=== PATIENT | female | born 1945 | race Caucasian/White ===

== ENCOUNTER 2017-09-29 13:55 | Outpatient (CLI) | payer MEDICARE, OTHER ==
[~2017-09-29 13:55] MED LIST: ACET-2615 PO; AMLO1TAB12 PO; BIMA2.5D OP; CALC300T4 PO; CHOL100046 PO; COL100C PO; DORZ10DR18 LEFTEYE; MULT-955 PO; OCUVITE PO; PANT-47 PO; PER10325T PO; ST.300TA3 PO; ZOLP5TAB8 PO
== END 2017-09-29 23:59 | disposition home or self-care (01) ==
LOC: RAD 13:55
PROVIDERS: ATTEND Thoracic Surgery (Cardiothoracic Vascular Surgery)
DX: Q79.1 Other congenital malformations of diaphragm (principal); I77.810 Thoracic aortic ectasia; I10 Essential (primary) hypertension; Z90.2 Acquired absence of lung [part of]; Z85.3 Personal history of malignant neoplasm of breast
CPT/HCPCS: 71020

== ENCOUNTER 2019-06-20 10:57 | Outpatient (CLI) | payer MEDICARE, OTHER | END 2019-06-20 23:59 | disposition home or self-care (01) | LOC: VAS 10:57 | PROVIDERS: ATTEND Orthopaedic Surgery | DX: M79.604 Pain in right leg (principal); I10 Essential (primary) hypertension; Z87.891 Personal history of nicotine dependence | CPT/HCPCS: 93970 ==

== ENCOUNTER 2019-08-27 05:05 | Inpatient (IN) | payer MEDICARE, OTHER ==
[2019-08-15 12:28] LABS: BASOPHILS % (AUTO) 0.5 % (0-1); EOSINOPHILS # (AUTO) 0.1 X10'3 (0-0.9); EOSINOPHILS % (AUTO) 1.6 % (0-6); LYMPHOCYTES # (AUTO) 1.3 X10'3 (1.1-4.8); LYMPHOCYTES % (AUTO) 27.4 % (21-51); MEAN CORPUSCULAR HEMOGLOBIN 30.9 PG (27.0-31.0); MEAN CORPUSCULAR HGB CONC 34.5 g/dL (33.0-36.5); MEAN CORPUSCULAR VOLUME 89.6 FL (78-98); MEAN PLATELET VOLUME 7.8 FL (7.4-10.4); MONOCYTES # (AUTO) 0.5 X10'3 (0-0.9); MONOCYTES % (AUTO) 9.3 % (2-12); NEUTROPHILS % (AUTO) 61.2 % (42-75); PRE OP HEMATOCRIT 38.4 % (35.0-45.0); PRE OP HEMOGLOBIN 13.2 g/dL (12.0-16.0); PRE OP PLATELET COUNT 180 X10'3 (140-440); RED BLOOD COUNT 4.28 X10'6 (4.20-5.60); RED CELL DISTRIBUTION WIDTH 13.3 % (11.5-14.5)
[2019-08-15 12:38] LABS: PRE OP PROTIME 10.9 SECONDS (9.0-12.0)
[2019-08-15 12:39] LABS: ALBUMIN 3.8 G/DL (3.4-5.0); ALBUMIN/GLOBULIN RATIO 1.1 (1.1-1.5); ALKALINE PHOSPHATASE 84 IU/L (46-116); BLOOD UREA NITROGEN 18 MG/DL (7-18); BUN/CREATININE RATIO 26.1 (6.6-38.0); CALCIUM 9.1 MG/DL (8.5-10.1); CHLORIDE 104 MMOL/L (99-107); CREATININE 0.69 MG/DL (0.40-0.90); PRE OP ALT 24 U/L (30-65); PRE OP ANION GAP 9 (8-16); PRE OP AST 12 U/L (10-37); PRE OP BILIRUB, TOTAL 0.4 MG/DL (0.0-1.0); PRE OP GLUCOSE 113 MG/DL (70-104); PRE OP POTASSIUM 3.7 MMOL/L (3.4-5.1); PRE OP SODIUM 141 MMOL/L (135-145); TOTAL CARBON DIOXIDE 27.8 MMOL/L (24-32); TOTAL PROTEIN 7.3 G/DL (6.4-8.2); eGFR 84 ML/MIN
[2019-08-27] VITALS (18 sets, daily range): BP systolic 97–153; BP diastolic 52–74
[~2019-08-27] VITALS: Ht 160 cm; Wt 77.7 kg
[~2019-08-27 05:05] MED LIST changes: +ANAS1TAB PO; +APIX5TAB3 PO; -CALC300T4 PO; +CALCIUM PO; -COL100C PO; +MELA3TAB64 PO; -OCUVITE PO; -PANT-47 PO; -PER10325T PO; +TRAM50TA2 PO; +ringers solution, lacted 1,000 ML IV SCH
[2019-08-27] MEDS ORDERED: famotidine 20mg tablet PO ONE (05:30)
[2019-08-27] MEDS ORDERED: tranexamic acid inj. 1,000 MG in normal saline 100 ML IV ONE (05:30)
[2019-08-27] MEDS ORDERED: cefazolin/dext.iso 2gm/50ml 50 ML IV ONE (05:30)
[2019-08-27] MEDS ORDERED: vancomycin inj 1,500 MG in normal saline 300ml IV soln IV ONE (05:30)
[2019-08-27] MEDS ORDERED: ceFAZolin 1000mg inj ONE (06:37)
[2019-08-27 06:57] LABS: PARTIAL THROMBOPLASTIN TIME 35 SECONDS (22-32)
[2019-08-27] MEDS ORDERED: MIDAZolam 1mg/ml 10ml vial ONE (07:07)
[2019-08-27] MEDS ORDERED: morphine /PF 1mg/ml 10ml inj. ONE (07:07)
[2019-08-27] MEDS ORDERED: fentaNYL/PF 50MCG/1 ML 2ML syringe ONE (07:08)
[2019-08-27] MEDS ORDERED: tetracaine 1% (10mg/ml) pres. free inj. ONE (07:09)
[2019-08-27] MEDS ORDERED: LIDOcaine 2% (20mg/ml) 5ml vial ONE (07:35)
[2019-08-27] MEDS ORDERED: propofol inj 20 ML IV ONE (07:35)
[2019-08-27] MEDS ORDERED: diphenhydrAMINE 50 mg/ml inj ONE (07:51)
[2019-08-27] MEDS ORDERED: ringers solution, lacted 1,000 ML IV SCH (07:59)
[2019-08-27] MEDS ORDERED: hydrALAZINE 20mg/ml inj. IV PRN (08:00)
[2019-08-27] MEDS ORDERED: fentaNYL/PF 50MCG/1 ML 2ML syringe IV PRN ×2 (08:00)
[2019-08-27] MEDS ORDERED: morphine 4 MG/ML inj SYRINge IV PRN ×2 (08:00)
[2019-08-27] MEDS ORDERED: ondansetron/PF 4mg/2ml inj IV PRN ×3 (08:00→10:00)
[2019-08-27] MEDS ORDERED: labetalol 20mg/4ml (5mg/ml) syringe IV PRN (08:00)
[2019-08-27] MEDS ORDERED: diphenhydrAMINE 50 mg/ml inj IV PRN (08:05)
[2019-08-27] MEDS ORDERED: dexamethasone sod phosphate 4mg/ml inj. ONE (08:08)
[2019-08-27] MEDS ORDERED: ROPIVAcaine 0.5% (5mg/ml) 30ml vial ONE (08:08)
[2019-08-27] MEDS ORDERED: zolpidem 5mg tablet PO PRN (09:55)
--- NOTE | 2019-08-27 09:58 | NUR ---
Received from OR via SURGICAL BED, accompanied by Anesthesiologist Josephine and report given by Anesthesiolgist. Pt alert and oreitned VS stable, warming blanket on, moves all extremeties, all 4 distal pulses palpable. NC at 22L, sats 96%. right knee with tj dressing ON-Q line ready for medicine to be connected, cool pack in place. 18G left forearm running IVF LR 100cc/hr. Vargas cath in place draining yellow urine, SCDs on.
[2019-08-27] MEDS ORDERED: HYDROmorphone inj. 0.5 MG/0.5 ML DISP.SYRIN IV PRN (10:00)
[2019-08-27] MEDS ORDERED: acetaminophen 325mg tablet PO PRN (10:00)
[2019-08-27] MEDS ORDERED: diphenhydrAMINE 25mg capsule PO PRN (10:00)
[2019-08-27] MEDS ORDERED: magnesium hydroxide 30ml (MOM) UD suspension PO PRN (10:00)
[2019-08-27] MEDS ORDERED: bisacodyl 10mg suppository rectal RC PRN (10:00)
--- NOTE | 2019-08-27 10:18 | NUR ---
Report called to receiving nurse. Transferred via ortho bed. Belongings at bedside. Special Issues communicated to receiving nurse. Reviewed pt status with nurse at bedside. VS remain stable, family at bedside, BLL, call light within reach. Chart at bedside. Relayed information from Dr Madrigal that he does still want elequis to be given tonight as ordered despite her being fresh post op. Receiving nurse Jemima POWELL verbalized understanding of orders all questions answered.
[2019-08-27] MEDS: ROPIVAcaine 0.2%/PF PUMP/bolus 550 ML ADDCANAL SCH (10:45)
--- NOTE | 2019-08-27 11:15 | NUR ---
Pt returned from surgery with On-Q pump at 6ml/hr. Pt reported pain to be a "6" left knee. On-Q pump turned up to 8ml/hr at this time. Pt continued to complain of "more pain," and at 1200, ON-Q pump increased to 10ml/hr. Pt continues to rate pain at a "6" throbbing left knee, but states "I need to have less pain." Pt recovered well and was stable. Left knee pain rated at a "7" at 1600 and ON-Q pump was turned up to 12/hr. Recheck of pts pain at 1700 pt reported she was finally feeling better. Pt appears to have some difficulty relating to pain scale, but informs RN that she would like pain pump increased at the times listed above. Will continue to monitor.
[2019-08-27] MEDS: potassium Cl 20mEq in NS 1,000 ML IV SCH ×2 (14:38→23:18)
[2019-08-27] MEDS: ceFAZolin 1GM/D5W- ADD-VANTAGE 50 ML IV SCH ×2 (16:04→23:35)
--- NOTE | 2019-08-27 18:32 | NUR ---
Problems reprioritized. Patient report given, questions answered & plan of care reviewed with ANDRE Del Toro.
[2019-08-27] MEDS ORDERED: vancomycin/NS 1 GM ADD-VANTAGE 250 ML IV SCH (20:00)
[2019-08-27] MEDS: Melatonin 3mg tablet PO SCH (20:31)
[2019-08-27] MEDS: apixaban 5mg tablet PO SCH (20:31)
[2019-08-27] MEDS: sennosides 8.6mg tablet PO SCH (20:33)
[2019-08-27] MEDS: latanoprost 0.005% 2.5ml ophthalmic drops LEFTEYE SCH (20:33)
[2019-08-27] MEDS: HYDROcodone/acetaminophen 10/325mg tab PO PRN (21:15)
[2019-08-28] VITALS (8 sets, daily range): BP systolic 77–147; BP diastolic 40–77
[2019-08-28] MEDS: HYDROcodone/acetaminophen 10/325mg tab PO PRN ×4 (03:36→22:27)
[2019-08-28] MEDS: potassium Cl 20mEq in NS 1,000 ML IV SCH (05:21)
[2019-08-28 06:10] LABS: BASOPHILS % (AUTO) 0.1 % (0-1); EOSINOPHILS % (AUTO) 0.7 % (0-6); HEMATOCRIT 26.6 % (35.0-45.0); HEMOGLOBIN 9.3 g/dl (12.0-16.0); LYMPHOCYTES # (AUTO) 0.9 X10'3 (1.1-4.8); LYMPHOCYTES % (AUTO) 14.4 % (21-51); MEAN CORPUSCULAR HEMOGLOBIN 31.3 PG (27.0-31.0); MEAN CORPUSCULAR HGB CONC 35.1 g/dL (33.0-36.5); MEAN CORPUSCULAR VOLUME 89.3 FL (78-98); MEAN PLATELET VOLUME 8.4 FL (7.4-10.4); MONOCYTES # (AUTO) 0.8 X10'3 (0-0.9); NEUTROPHILS # (AUTO) 4.8 X10'3 (1.8-7.7); NEUTROPHILS % (AUTO) 72.8 % (42-75); PLATELET COUNT 121 X10'3 (140-440); RED BLOOD COUNT 2.97 X10'6 (4.20-5.60); RED CELL DISTRIBUTION WIDTH 13.5 % (11.5-14.5); WHITE BLOOD COUNT 6.6 X10'3 (4.5-11.0)
[2019-08-28 06:11] LABS: ALANINE AMINOTRANSFERASE 44 U/L (12-78); ALBUMIN 2.7 G/DL (3.4-5.0); ALBUMIN/GLOBULIN RATIO 1.1 (1.1-1.5); ALKALINE PHOSPHATASE 71 IU/L (46-116); ANION GAP 9 (8-16); ASPARTATE AMINO TRANSFERASE 28 U/L (10-37); BILIRUBIN,TOTAL 0.4 MG/DL (0.1-1.0); BLOOD UREA NITROGEN 13 MG/DL (7-18); BUN/CREATININE RATIO 20.3 (6.6-38.0); CALCIUM 7.8 MG/DL (8.5-10.1); CHLORIDE 107 MMOL/L (99-107); CREATININE 0.64 MG/DL (0.40-0.90); GLUCOSE 115 MG/DL (70-104); POTASSIUM 3.9 MMOL/L (3.5-5.1); SODIUM 140 MMOL/L (135-145); TOTAL CARBON DIOXIDE 23.9 MMOL/L (24-32); TOTAL PROTEIN 5.2 G/DL (6.4-8.2); eGFR > 90 ML/MIN
--- NOTE | 2019-08-28 06:26 | NUR ---
REPORT GIVEN TO ANDRE WESTON.
--- NOTE | 2019-08-28 07:30 | NUR ---
Prior to PT, dilaudid was given. PT to work with this afternoon. Addendum: 08/28/19 at 1304 by Tiffany Ferro RN Amended: Links added.
[2019-08-28] MEDS: anastrozole 1 MG tablet PO SCH (09:07)
[2019-08-28] MEDS: apixaban 5mg tablet PO SCH ×2 (09:07→20:33)
[2019-08-28] MEDS: losartan 50mg tablet PO SCH (09:07)
[2019-08-28] MEDS: dorzolamide/timolol (Cosopt) ophthalmic drops 10ml bottle LEFTEYE SCH (09:07)
[2019-08-28] MEDS: amLODIPine 5mg tablet PO SCH (09:07)
--- NOTE | 2019-08-28 11:39 | NUR ---
Student Medication Administration:For this medication-pass time frame [id number], all medications were reviewed,administered and documented per hospital policy by Shania Mcclain. Student documentation:I have reviewed and agree with all interventions, assessments performed and documented by Shania Mcclain.
--- NOTE | 2019-08-28 11:49 | NUR ---
Joint replacement consult: Pt seen by PRAKASH for written/verbal high protein ed w/ RD contact information provided. Pt agrees to strawberry ensure enlive TIDWM since drinks premier proteins at home. Pt aware that pending MD verification prior to sending on trays. Some new onset nausea today per pt now improving. Will continue to monitor. Addendum: 08/28/19 at [address] Amended: Links added.
--- NOTE | 2019-08-28 18:18 | NUR ---
Problems reprioritized. Patient report given, questions answered & plan of care reviewed with Katey POWELL.
[2019-08-28] MEDS: latanoprost 0.005% 2.5ml ophthalmic drops LEFTEYE SCH (20:33)
[2019-08-28] MEDS: Melatonin 3mg tablet PO SCH (20:33)
[2019-08-28] MEDS: sennosides 8.6mg tablet PO SCH (20:33)
[2019-08-28] MEDS: diphenhydrAMINE 25mg capsule PO PRN (22:27)
[2019-08-29] MEDS: potassium Cl 20mEq in NS 1,000 ML IV SCH (01:58)
[2019-08-29] MEDS: HYDROcodone/acetaminophen 10/325mg tab PO PRN ×5 (02:19→20:25)
[2019-08-29 06:00] VITALS: BP 149/77
[2019-08-29 06:21] LABS: BASOPHILS % (AUTO) 0.2 % (0-1); EOSINOPHILS % (AUTO) 0.3 % (0-6); HEMATOCRIT 26.1 % (35.0-45.0); HEMOGLOBIN 9.2 g/dl (12.0-16.0); LYMPHOCYTES # (AUTO) 0.8 X10'3 (1.1-4.8); LYMPHOCYTES % (AUTO) 9.4 % (21-51); MEAN CORPUSCULAR HEMOGLOBIN 31.6 PG (27.0-31.0); MEAN CORPUSCULAR HGB CONC 35.4 g/dL (33.0-36.5); MEAN CORPUSCULAR VOLUME 89.2 FL (78-98); MEAN PLATELET VOLUME 8.2 FL (7.4-10.4); MONOCYTES # (AUTO) 0.9 X10'3 (0-0.9); MONOCYTES % (AUTO) 10.2 % (2-12); NEUTROPHILS % (AUTO) 79.9 % (42-75); PLATELET COUNT 128 X10'3 (140-440); RED BLOOD COUNT 2.93 X10'6 (4.20-5.60); RED CELL DISTRIBUTION WIDTH 13.3 % (11.5-14.5); WHITE BLOOD COUNT 8.7 X10'3 (4.5-11.0)
--- NOTE | 2019-08-29 06:23 | NUR ---
REPORT GIVEN TO ANDRE KAT.
--- NOTE | 2019-08-29 06:25 | NUR ---
Patient in room ORTH[facility] 4024. I have received report from Katey and had the opportunity to ask questions and assume patient care.
--- NOTE | 2019-08-29 06:31 | NUR ---
Patient in room ORTH[facility] 4024. I have received report from Katey and had the opportunity to ask questions and assume patient care.
[2019-08-29 06:37] LABS: ALANINE AMINOTRANSFERASE 32 U/L (12-78); ALBUMIN 2.6 G/DL (3.4-5.0); ALBUMIN/GLOBULIN RATIO 0.8 (1.1-1.5); ALKALINE PHOSPHATASE 66 IU/L (46-116); ANION GAP 10 (8-16); ASPARTATE AMINO TRANSFERASE 19 U/L (10-37); BILIRUBIN,TOTAL 0.4 MG/DL (0.1-1.0); BLOOD UREA NITROGEN 9 MG/DL (7-18); BUN/CREATININE RATIO 15.3 (6.6-38.0); CALCIUM 8.1 MG/DL (8.5-10.1); CHLORIDE 103 MMOL/L (99-107); CREATININE 0.59 MG/DL (0.40-0.90); GLUCOSE 119 MG/DL (70-104); POTASSIUM 3.6 MMOL/L (3.5-5.1); SODIUM 136 MMOL/L (135-145); TOTAL CARBON DIOXIDE 23.1 MMOL/L (24-32); TOTAL PROTEIN 5.8 G/DL (6.4-8.2); eGFR > 90 ML/MIN
[2019-08-29] MEDS: dorzolamide/timolol (Cosopt) ophthalmic drops 10ml bottle LEFTEYE SCH (08:39)
[2019-08-29] MEDS: anastrozole 1 MG tablet PO SCH (08:39)
[2019-08-29] MEDS: losartan 50mg tablet PO SCH (08:40)
[2019-08-29] MEDS: amLODIPine 5mg tablet PO SCH (08:40)
[2019-08-29] MEDS: apixaban 5mg tablet PO SCH ×2 (08:41→20:24)
[2019-08-29] MEDS: ROPIVAcaine 0.2%/PF PUMP/bolus 550 ML ADDCANAL SCH (08:55)
[2019-08-29 10:00] VITALS: BP 139/67
[2019-08-29 14:00] VITALS: BP 130/64
[2019-08-29 18:00] VITALS: BP 121/64
--- NOTE | 2019-08-29 18:08 | NUR ---
Problems reprioritized. Patient report given, questions answered & plan of care reviewed with Katey.
[2019-08-29] MEDS: lactose-reduced food (Ensure High Protein) 237ml bottle PO SCH (18:10)
--- NOTE | 2019-08-29 19:08 | NUR ---
REPORT REC'D FROM ANDRE KAT.
[2019-08-29] MEDS: Melatonin 3mg tablet PO SCH (20:24)
[2019-08-29] MEDS: diphenhydrAMINE 25mg capsule PO PRN (20:24)
[2019-08-29] MEDS: sennosides 8.6mg tablet PO SCH (20:24)
[2019-08-29] MEDS: latanoprost 0.005% 2.5ml ophthalmic drops LEFTEYE SCH (20:25)
[2019-08-29 22:00] VITALS: BP 152/68
[2019-08-30] MEDS: HYDROcodone/acetaminophen 10/325mg tab PO PRN ×4 (00:25→12:25)
[2019-08-30 06:00] VITALS: BP 140/69
--- NOTE | 2019-08-30 06:11 | NUR ---
REPORT GIVEN TO ANDRE KAT.
--- NOTE | 2019-08-30 06:20 | NUR ---
Patient in room ORTH[facility] 4024. I have received report from Katey and had the opportunity to ask questions and assume patient care.
[2019-08-30 06:36] LABS: BASOPHILS % (AUTO) 0.2 % (0-1); EOSINOPHILS % (AUTO) 0.5 % (0-6); HEMATOCRIT 24.9 % (35.0-45.0); HEMOGLOBIN 8.8 g/dl (12.0-16.0); LYMPHOCYTES # (AUTO) 0.8 X10'3 (1.1-4.8); LYMPHOCYTES % (AUTO) 9.2 % (21-51); MEAN CORPUSCULAR HEMOGLOBIN 31.4 PG (27.0-31.0); MEAN CORPUSCULAR HGB CONC 35.4 g/dL (33.0-36.5); MEAN CORPUSCULAR VOLUME 88.8 FL (78-98); MEAN PLATELET VOLUME 7.9 FL (7.4-10.4); MONOCYTES % (AUTO) 10.9 % (2-12); NEUTROPHILS % (AUTO) 79.2 % (42-75); PLATELET COUNT 151 X10'3 (140-440); RED CELL DISTRIBUTION WIDTH 13.3 % (11.5-14.5); WHITE BLOOD COUNT 8.8 X10'3 (4.5-11.0)
[2019-08-30 07:14] LABS: ALANINE AMINOTRANSFERASE 26 U/L (12-78); ALBUMIN 2.5 G/DL (3.4-5.0); ALBUMIN/GLOBULIN RATIO 0.7 (1.1-1.5); ALKALINE PHOSPHATASE 63 IU/L (46-116); ANION GAP 10 (8-16); ASPARTATE AMINO TRANSFERASE 10 U/L (10-37); BILIRUBIN,TOTAL 0.4 MG/DL (0.1-1.0); BLOOD UREA NITROGEN 13 MG/DL (7-18); BUN/CREATININE RATIO 20.6 (6.6-38.0); CALCIUM 8.1 MG/DL (8.5-10.1); CHLORIDE 103 MMOL/L (99-107); CREATININE 0.63 MG/DL (0.40-0.90); GLUCOSE 119 MG/DL (70-104); POTASSIUM 3.1 MMOL/L (3.5-5.1); SODIUM 138 MMOL/L (135-145); eGFR > 90 ML/MIN
[2019-08-30] MEDS: losartan 50mg tablet PO SCH (07:57)
[2019-08-30] MEDS: dorzolamide/timolol (Cosopt) ophthalmic drops 10ml bottle LEFTEYE SCH (07:57)
[2019-08-30] MEDS: anastrozole 1 MG tablet PO SCH (07:57)
[2019-08-30] MEDS: amLODIPine 5mg tablet PO SCH (07:57)
[2019-08-30] MEDS: lactose-reduced food (Ensure High Protein) 237ml bottle PO SCH ×2 (07:58→13:29)
[2019-08-30] MEDS: apixaban 5mg tablet PO SCH (07:58)
[2019-08-30] MEDS ORDERED: HYDR-4353 PO (09:11)
[2019-08-30 10:30] VITALS: BP 132/72
[2019-08-30] MEDS ORDERED: potassium Cl 20 mEq SR tablet PO STA (11:10)
--- NOTE | 2019-08-30 12:01 | NUR ---
Problems reprioritized. Patient report given, questions answered & plan of care reviewed with Amy POWELL.
--- NOTE | 2019-08-30 13:26 | NUR ---
Reviewed discharge instructions with pt. Pt verbalized understanding. Pt is awake, alert and does not have c/o pain at this time. All of pt's belongings were returned to pt. Pt was wheeled downstairs to be driven home by a friend. Pt received an Rx for pain medication. A copy was made of the Rx and placed in the chart.
== END 2019-08-30 13:25 | disposition home or self-care (01) | DRG 470 ==
LOC: PAS IN 05:05 → EDSTATUS 07:30 → ORTHO 4S 11:19
PROVIDERS: ADMIT Orthopaedic Surgery; ATTEND Orthopaedic Surgery
PROC: 3E0T3BZ Introduction of Anesthetic Agent into Peripheral Nerves and Plexi, Percutaneous Approach (ICD-10-PCS; 2019-08-27)
PROC: 0SRD0J9 Replacement of Left Knee Joint with Synthetic Substitute, Cemented, Open Approach (ICD-10-PCS; principal; 2019-08-27 07:12)
DX: M17.12 Unilateral primary osteoarthritis, left knee (principal); D62 Acute posthemorrhagic anemia; I10 Essential (primary) hypertension; Z85.43 Personal history of malignant neoplasm of ovary; Z86.718 Personal history of other venous thrombosis and embolism; Z85.3 Personal history of malignant neoplasm of breast
CPT/HCPCS: 36415; 71046; 80053; 82948; 85025; 85610; 85730; 86885; 86900; 86901; 86922; 87081; 97110; 97112; 97116; 97161; 97530; A4215; A6455; A7000; C1713; C1758; C1776; G0378; J0690; J1100; J1170; J1200; J2001; J2250; J2270; J2704; J2795; J3010; J3370; J3480; J7120; Q0163

== ENCOUNTER 2021-07-27 10:33 | Day surgery (SDC) | payer MEDICARE, OTHER ==
[2021-07-22 14:11] LABS: BASOPHILS % (AUTO) 0.6 % (0-1); EOSINOPHILS # (AUTO) 0.2 X10'3 (0-0.9); EOSINOPHILS % (AUTO) 3.5 % (0-6); LYMPHOCYTES # (AUTO) 1.3 X10'3 (1.1-4.8); LYMPHOCYTES % (AUTO) 24.8 % (21-51); MEAN CORPUSCULAR HEMOGLOBIN 28.7 PG (27.0-31.0); MEAN CORPUSCULAR HGB CONC 33.4 g/dL (33.0-36.5); MEAN CORPUSCULAR VOLUME 85.9 FL (78-98); MEAN PLATELET VOLUME 8.6 FL (7.4-10.4); MONOCYTES # (AUTO) 0.4 X10'3 (0-0.9); MONOCYTES % (AUTO) 8.4 % (2-12); NEUTROPHILS # (AUTO) 3.3 X10'3 (1.8-7.7); NEUTROPHILS % (AUTO) 62.7 % (42-75); PRE OP HEMATOCRIT 39.2 % (35.0-45.0); PRE OP HEMOGLOBIN 13.1 g/dL (12.0-16.0); PRE OP PLATELET COUNT 187 X10'3 (140-440); RED BLOOD COUNT 4.56 X10'6 (4.20-5.60); RED CELL DISTRIBUTION WIDTH 13.9 % (11.5-14.5)
[2021-07-22 14:19] LABS: PRE OP INR 1.1 INR; PRE OP PROTIME 10.9 SECONDS (9.0-12.0)
[2021-07-22 14:31] LABS: ALBUMIN 3.7 G/DL (3.4-5.0); ALBUMIN/GLOBULIN RATIO 1.2 (1.1-1.5); ALKALINE PHOSPHATASE 111 IU/L (46-116); BLOOD UREA NITROGEN 17 MG/DL (7-18); BUN/CREATININE RATIO 17.2 (6.6-38.0); CALCIUM 8.8 MG/DL (8.5-10.1); CHLORIDE 108 MMOL/L (99-107); CREATININE 0.99 MG/DL (0.40-0.90); PRE OP ALT 29 U/L (30-65); PRE OP ANION GAP 9 (8-16); PRE OP AST 14 U/L (10-37); PRE OP BILIRUB, TOTAL 0.4 MG/DL (0.0-1.0); PRE OP GLUCOSE 138 MG/DL (70-104); PRE OP POTASSIUM 3.5 MMOL/L (3.4-5.1); PRE OP SODIUM 143 MMOL/L (135-145); TOTAL CARBON DIOXIDE 25.8 MMOL/L (24-32); TOTAL PROTEIN 6.9 G/DL (6.4-8.2); eGFR 55 ML/MIN
[2021-07-27] VITALS (22 sets, daily range): BP systolic 95–137; BP diastolic 58–78
[~2021-07-27] VITALS: Ht 160 cm; Wt 87.6 kg
--- NOTE | 2021-07-27 10:25 | NUR ---
PT ARRIVED TO RECOVERY VIA BED, WAKING SLOWLY, VSS, DENIES PAIN, RIGHT ARM IN SLING-DRSG TO SHOULDER CDI, CSM-INTACT, BLOCK WORKING-PT UNABLE TO FEEL OR MOVE RIGHT HAND, PIV 20G TO LUE, SCDS TO LEGS, ICE TO SHOULDER
[~2021-07-27 10:33] MED LIST changes: -ACET-2615 PO; +CALC600T22 PO; -CALCIUM PO; +CELE-28 PO; -CHOL100046 PO; +HYDROmorphone 1 mg/ml syringe IV PRN; +L-LYSINE; +LIDOcaine 1%/PF 5ML 10 MG/ML VIAL ONE; +MAGN400C PO; -MELA3TAB64 PO; +MELATONIN; +MIDAZolam 1 MG/ML 5ML VIAL ONE; -MULT-955 PO; +MVI; +OMEP40CA21 PO; +OXYB10TA4 PO; +POTA99TA21; -ST.300TA3 PO; -TRAM50TA2 PO; +VITAMIN D-3; +acetaminophen 325mg tablet PO PRN; +albumin (Human) 5% 250ml 250 ML IV ONE; +bisacodyl 10mg suppository rectal RC PRN; +ceFAZolin 1000mg inj ONE; +cefazolin/dext.iso 2gm/50ml 50 ML IV ONE; +cloNIDine hcl/PF 100mcg/ml inj ONE; +dexamethasone sod phosphate 4mg/ml inj. ONE; +diphenhydrAMINE 25mg capsule PO PRN; +famotidine 20mg tablet PO ONE; +fentaNYL/PF 50MCG/1 ML 2ML syringe ONE; +magnesium hydroxide 30ml (MOM) UD suspension PO PRN; +meperidine/PF 25mg/ml syringe IV PRN; +morphine 2 MG/ML inj. syringe IV PRN; +morphine 4 MG/ML inj SYRINge IV PRN; +ondansetron/PF 4mg/2ml inj IV PRN; +ondansetron/PF 4mg/2ml inj ONE; +proCHLORperazine 10 MG/2 ml inj IV PRN; +propofol inj 20 ML IV ONE; +vancomycin 1,500 MG in NS 300ml IV soln IV ONE; +zolpidem 5mg tablet PO PRN
--- NOTE | 2021-07-27 12:05 | NUR ---
PT AWAKE, VSS ON 2LTRS O2, DENIES PAIN, BLOCK STILL WORKING TO RIGHT ARM-CSM INTACT, ARM IN SLING, PIV TO LEFT HAND 20G-LR RUNNING AT 100/HR, SCDS ON, ICE TO RIGHT SHOULDER, PT TOLERATING FLUIDS, REPORT CALLED TO RN SUNDEEP-ALL QUESTIONS ANSWERED, PT TAKEN BY OR TECHS TO ROOM 345A WITH ALL BELONGINGS, BED LOW AND LOCKED, CALL LIGHT IN REACH, PRIMARY RN AWARE.
[2021-07-27] MEDS: potassium Cl 20mEq in NS 1,000 ML IV SCH ×2 (13:40→23:50)
[2021-07-27] MEDS: ceFAZolin/D5W- 1GM premix 50 ML IV SCH ×2 (15:39→23:51)
[2021-07-27] MEDS ORDERED: FLU VACC QS2021-22(6MOS UP)/PF 60 MCG/0.5 ML SYRINGE IM ONE (16:00)
--- NOTE | 2021-07-27 18:15 | NUR ---
Patient in room [facility] 345. I have received report from ANDRE Mullen and had the opportunity to ask questions and assume patient care.
--- NOTE | 2021-07-27 18:55 | NUR ---
Patient in room [facility] 345. I have received report from Paz POWELL and had the opportunity to ask questions and assume patient care.
[2021-07-27] MEDS: HYDROcodone/acetaminophen 10/325mg tab PO PRN ×2 (19:52→23:51)
[2021-07-27] MEDS: oxybutynin 5mg tablet PO SCH (19:59)
[2021-07-27] MEDS ORDERED: vancomycin/NS 1 GM ADD-VANTAGE 250 ML IV SCH (20:00)
[2021-07-27] MEDS ORDERED: latanoprost 0.005% 2.5ml ophthalmic drops EACHEYE SCH (21:00)
[2021-07-27] MEDS ORDERED: sennosides 8.6mg tablet PO SCH (21:00)
[2021-07-28] VITALS: BP 111/67
[2021-07-28] MEDS: potassium Cl 20mEq in NS 1,000 ML IV SCH (04:13)
[2021-07-28 04:18] VITALS: BP 134/75
--- NOTE | 2021-07-28 06:48 | NUR ---
Problems reprioritized. Patient report given, questions answered & plan of care reviewed with Faye POWELL.
--- NOTE | 2021-07-28 06:49 | NUR ---
Problems reprioritized. Patient report given, questions answered & plan of care reviewed with ANDRE Mckinney.
--- NOTE | 2021-07-28 06:53 | NUR ---
Student documentation: I have reviewed and agree with all interventions, assessments performed and documented by [employer] student.
--- NOTE | 2021-07-28 07:00 | NUR ---
Patient in room [facility] 345. I have received report from Corrine POWELL and had the opportunity to ask questions and assume patient care.
[2021-07-28] MEDS: HYDROcodone/acetaminophen 10/325mg tab PO PRN (07:27)
[2021-07-28] MEDS ORDERED: pantoprazole 40mg Tablet.DR PO SCH (07:30)
[2021-07-28 08:00] VITALS: BP 152/78
[2021-07-28] MEDS ORDERED: anastrozole 1 MG tablet PO SCH (08:00)
[2021-07-28] MEDS ORDERED: amLODIPine 5mg tablet PO SCH (08:00)
[2021-07-28] MEDS ORDERED: dorzolamide/timolol (Cosopt) ophthalmic drops 10ml bottle LEFTEYE SCH (08:00)
[2021-07-28] MEDS ORDERED: losartan 50mg tablet PO SCH (08:00)
[2021-07-28] MEDS: oxybutynin 5mg tablet PO SCH (10:11)
[2021-07-28] MEDS ORDERED: HYDROcodone/acetaminophen 10/325mg tab PO ONE (11:45)
[2021-07-28 12:00] VITALS: BP 132/61
[2021-07-28] MEDS ORDERED: HYDR-3972 PO (12:10)
--- NOTE | 2021-07-28 12:58 | NUR ---
Adelita Donato still at bedside working on pt's discharge. Not yet ready for d/c. Will continue to monitor.
[2021-07-28] MEDS ORDERED: BACL-11 PO (13:13)
--- NOTE | 2021-07-28 15:30 | NUR ---
Pt's ride is here. Pt stable and appropriate for discharge. PIV d/c'd cannula intact. Reviewed with pt all d/c instructions, meds, incision care, followup, with pt given opportunity to ask questions, answers provided and pt verbalizing understanding. Prescriptions escripted to pharmacy of choice. Pt to call Dr Bird with any questions, concerns or s/sx of complications/infection or return to nearest ED. Pt states she has all personal belonings. Pt escorted to front lobby via w/c accompanied by hospital personnel, and d/c'd home in private vehicle driven by family member.
[2021-07-28] MEDS ORDERED: apixaban 5mg tablet PO SCH (20:00)
== END 2021-07-28 15:35 | disposition home or self-care (01) ==
LOC: SUR 3N 10:33 → PAS 10:33
PROVIDERS: ATTEND Orthopaedic Surgery
DX: S46.011A Strain of muscle(s) and tendon(s) of the rotator cuff of right shoulder, initial encounter (principal); E66.9 Obesity, unspecified; Z68.34 Body mass index [BMI] 34.0-34.9, adult; I10 Essential (primary) hypertension; G89.18 Other acute postprocedural pain; Z86.14 Personal history of Methicillin resistant Staphylococcus aureus infection; Z94.7 Corneal transplant status; Z98.890 Other specified postprocedural states; Z96.652 Presence of left artificial knee joint; Z85.3 Personal history of malignant neoplasm of breast; Z85.41 Personal history of malignant neoplasm of cervix uteri; Z87.891 Personal history of nicotine dependence; Z88.8 Allergy status to other drugs, medicaments and biological substances; Z85.118 Personal history of other malignant neoplasm of bronchus and lung; Z86.718 Personal history of other venous thrombosis and embolism; Z20.822 Contact with and (suspected) exposure to COVID-19; Z79.899 Other long term (current) drug therapy; Z79.01 Long term (current) use of anticoagulants; W19.XXXA Unspecified fall, initial encounter; Y93.89 Activity, other specified; Y92.89 Other specified places as the place of occurrence of the external cause; Y99.8 Other external cause status
CPT/HCPCS: 23130; 23412; 36415; 64415; 76942; 80053; 82948; 85025; 85610; 85730; 97110; 97530; A6223; C1713; J0690; J0735; J1100; J1170; J2250; J2405; J2704; J3010; J3370; J3480; J7040; J7120; P9045; U0003; U0005; Z7506; Z7508; Z7512; A4565; A4618; A6253; A6449; A7000; G0378

== ENCOUNTER 2023-08-28 19:11 | Emergency (ER) | payer MEDICARE, OTHER ==
[~2023-08-28] VITALS: Ht 157.5 cm; Wt 86.4 kg
[~2023-08-28 19:11] MED LIST changes: -APIX5TAB3 PO; +BACL-11 PO; -CALC600T22 PO; -CELE-28 PO; -DORZ10DR18 LEFTEYE; +DORZ10DR32 LEFTEYE; +HYDR-3972 PO; -HYDROmorphone 1 mg/ml syringe IV PRN; -L-LYSINE; -LIDOcaine 1%/PF 5ML 10 MG/ML VIAL ONE; -MAGN400C PO; -MELATONIN; -MIDAZolam 1 MG/ML 5ML VIAL ONE; -MVI; -POTA99TA21; +POTA99TA26; -VITAMIN D-3; -acetaminophen 325mg tablet PO PRN; -albumin (Human) 5% 250ml 250 ML IV ONE; -bisacodyl 10mg suppository rectal RC PRN; -ceFAZolin 1000mg inj ONE; -cefazolin/dext.iso 2gm/50ml 50 ML IV ONE; -cloNIDine hcl/PF 100mcg/ml inj ONE; -dexamethasone sod phosphate 4mg/ml inj. ONE; -diphenhydrAMINE 25mg capsule PO PRN; -famotidine 20mg tablet PO ONE; -fentaNYL/PF 50MCG/1 ML 2ML syringe ONE; -magnesium hydroxide 30ml (MOM) UD suspension PO PRN; -meperidine/PF 25mg/ml syringe IV PRN; -morphine 2 MG/ML inj. syringe IV PRN; -morphine 4 MG/ML inj SYRINge IV PRN; -ondansetron/PF 4mg/2ml inj IV PRN; -ondansetron/PF 4mg/2ml inj ONE; -proCHLORperazine 10 MG/2 ml inj IV PRN; -propofol inj 20 ML IV ONE; -ringers solution, lacted 1,000 ML IV SCH; -vancomycin 1,500 MG in NS 300ml IV soln IV ONE; -zolpidem 5mg tablet PO PRN
[2023-08-28] MEDS ORDERED: oxyCODONE IR 5mg (immed. release) tablet PO ONE (19:20)
[2023-08-28] MEDS ORDERED: HYDR-3965 PO (20:58)
[2023-08-28 21:02] VITALS: BP 149/69; PULSE 104; RESP 18; TEMP 98.6; O2SAT 98
== END 2023-08-28 21:05 | disposition home or self-care (01) ==
LOC: ER 19:11
DX: S42.392A Other fracture of shaft of left humerus, initial encounter for closed fracture (principal); W18.39XA Other fall on same level, initial encounter; Z85.3 Personal history of malignant neoplasm of breast; Y93.89 Activity, other specified; Y92.89 Other specified places as the place of occurrence of the external cause; Y99.8 Other external cause status
CPT/HCPCS: 70450; 73060; 99284

== ENCOUNTER 2025-07-15 13:07 | Outpatient (CLI) | payer MEDICARE, OTHER ==
[~2025-07-15 13:07] MED LIST changes: +ZOLP5TAB19 PO; -ZOLP5TAB8 PO
--- NOTE | 2025-07-15 17:00 | RADIOLOGY REPORT ---
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 15 mL ml of clariscan was administered intravenously. COMPARISON: CT CT HEAD on DOS: 08/28/23 FINDINGS: There is no abnormal restricted diffusion to suggest acute infarction. There is mild brain volume loss. Scattered T2 hyperintense foci within the white matter both cerebral hemispheres is most compatible with a [id number] burden of nonspecific chronic small vessel ischemic change. There is no evidence for acute ischemic changes, mass, mass effect, or extra- axial fluid collection. There is no hydrocephalus or midline shift. The cerebral sulci and subarachnoid cisterns are not effaced. The imaged paranasal sinuses are clear. Of the left globe prosthesis. The midline structures, including the corpus callosum, are unremarkable. The intracranial flow voids are maintained. There is no abnormal post contrast enhancement. IMPRESSION: No MR evidence for intracranial metastatic disease.
[2025-07-15] MEDS ORDERED: GADOTERATE MEGLUMINE 7.5 MMOL/15 ML VIAL IV ONE (18:27)
== END 2025-07-15 23:59 | disposition home or self-care (01) ==
LOC: MRI 13:07
PROVIDERS: ATTEND Internal Medicine Nephrology
DX: C50.411 Malignant neoplasm of upper-outer quadrant of right female breast (principal); C34.12 Malignant neoplasm of upper lobe, left bronchus or lung
CPT/HCPCS: 70553; A9575